=== PATIENT | female | born 2000 | race Caucasian/White ===

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

== ENCOUNTER → 2021-01-21 11:36 | Outpatient (BNVA) | payer MEDICAID, SELFPAY | PROVIDERS: PCP Nurse Practitioner Family; Visit Provider Obstetrics & Gynecology | DX: O99.013 Anemia complicating pregnancy, third trimester (principal); D64.9 Anemia, unspecified; Z3A.00 Weeks of gestation of pregnancy not specified | CPT/HCPCS: 81000 ==

== ENCOUNTER → 2021-01-25 08:56 | Outpatient (BNVA) | payer MEDICAID, SELFPAY | PROVIDERS: PCP Nurse Practitioner Family; Visit Provider Obstetrics & Gynecology | DX: O99.213 Obesity complicating pregnancy, third trimester (principal); O99.333 Smoking (tobacco) complicating pregnancy, third trimester; O99.013 Anemia complicating pregnancy, third trimester; Z3A.32 32 weeks gestation of pregnancy | CPT/HCPCS: 81000; 82951; 82952 ==

== ENCOUNTER → 2021-02-08 10:12 | Outpatient (BNVA) | payer MEDICAID, SELFPAY | PROVIDERS: PCP Nurse Practitioner Family; Visit Provider Nurse Practitioner Women's Health | DX: O09.33 Supervision of pregnancy with insufficient antenatal care, third trimester; O99.212 Obesity complicating pregnancy, second trimester; E66.9 Obesity, unspecified; O99.332 Smoking (tobacco) complicating pregnancy, second trimester; Z3A.00 Weeks of gestation of pregnancy not specified; F17.200 Nicotine dependence, unspecified, uncomplicated | CPT/HCPCS: 81000; 86787 ==

== ENCOUNTER → 2021-02-22 08:50 | Outpatient (BNVA) | payer MEDICAID, SELFPAY | PROVIDERS: PCP Nurse Practitioner Family; Visit Provider Obstetrics & Gynecology | DX: O09.33 Supervision of pregnancy with insufficient antenatal care, third trimester (principal); O99.013 Anemia complicating pregnancy, third trimester; D64.9 Anemia, unspecified; Z3A.00 Weeks of gestation of pregnancy not specified | CPT/HCPCS: 81000; 87081 ==

== ENCOUNTER → 2021-02-28 12:40 | Outpatient (BNVA) | payer MEDICAID, SELFPAY | PROVIDERS: PCP Nurse Practitioner Family; Visit Provider Obstetrics & Gynecology | DX: Z34.02 Encounter for supervision of normal first pregnancy, second trimester (principal) | CPT/HCPCS: 81000 ==

== ENCOUNTER → 2021-03-07 13:06 | Outpatient (BNVA) | payer MEDICAID, SELFPAY | PROVIDERS: PCP Nurse Practitioner Family; Visit Provider Obstetrics & Gynecology | DX: Z34.02 Encounter for supervision of normal first pregnancy, second trimester (principal) | CPT/HCPCS: 81000 ==

== ENCOUNTER 2021-03-11 20:51 | Outpatient (CLI) | payer MEDICAID, SELFPAY ==
[2021-03-11 21:04] VITALS: BMI 37.3
[2021-03-11 21:06] VITALS: BP 122/81; PULSE 101
[2021-03-11 21:10] VITALS: RESP 17; TEMP 36.3
[2021-03-11 21:11] VITALS: TEMP 36.3
[2021-03-11] MEDS: acetaminophen 500 mg Tablet 1000 MG PO (22:00)
[2021-03-11] MEDS: dextrose 5%-lactated ringers 1,000 ML 999 ML IV (22:01)
[2021-03-11 22:34] VITALS: BP 126/72; PULSE 86; TEMP 35.9
[2021-03-11 22:46] VITALS: BP 126/72; PULSE 86; RESP 16; TEMP 35.9
== END 2021-03-11 22:46 | disposition home or self-care (01) ==
LOC: OPOB 20:59 → OBGYN 20:59
PROVIDERS: PCP Nurse Practitioner Family; Visit Provider Obstetrics & Gynecology
DX: O26.899 Other specified pregnancy related conditions, unspecified trimester (principal); Z3A.00 Weeks of gestation of pregnancy not specified; R10.9 Unspecified abdominal pain
CPT/HCPCS: 59025; 96360; 99211

== ENCOUNTER → 2021-03-15 11:25 | Outpatient (BNVA) | payer MEDICAID, SELFPAY | PROVIDERS: PCP Nurse Practitioner Family; Visit Provider Nurse Practitioner Women's Health | DX: Z34.02 Encounter for supervision of normal first pregnancy, second trimester (principal) | CPT/HCPCS: 81000; 85027; 87635 ==

== ENCOUNTER 2021-03-21 18:00 | Inpatient (IN) | payer MEDICAID, SELFPAY ==
[2021-03-21] VITALS (14 sets, daily range): BP systolic 106–140; BP diastolic 56–77; PULSE 75–106; RESP 16–18; TEMP 36.3–36.8; BMI 37.2
[2021-03-21 18:17] LABS: Basophils % 0.4 %; Eosinophils # 0.2 10^3/uL (0.0-0.8); Hematocrit 31.4 % (37.0-47.0); Hemoglobin 9.9 g/dL (11.5-15.3); Lymphocytes # 1.8 10^3/uL (1.5-6.5); Lymphocytes % 17.1 %; Mean Corpuscular HGB Conc 31.5 g/dL (30.0-36.0); Mean Corpuscular Hemoglobin 25.1 pg (28.0-34.0); Mean Corpuscular Volume 79.5 fL (81-99); Mean Platelet Volume 9.8 fL (7.4-10.4); Monocytes # 0.7 10^3/uL (0.2-0.9); Monocytes % 6.5 %; Neutrophils # 7.64 10^3/uL (1.8-8.0); Neutrophils % 73.5 %; Nucleated Red Blood Cells % 0 %; Platelet Count 447 10^3/cmm (130-400); Red Blood Count 3.95 10^6/uL (4.1-5.3); Red Cell Distribution Width 15.3 % (12.1-15.1); White Blood Count 10.4 10^3/uL (4.5-13.0)
[2021-03-21] MEDS: miSOPROStol 100 mcg tablet 25 MCG VAGINAL ×2 (18:26→22:29)
[2021-03-21] MEDS: acetaminophen 325 mg Tablet 650 MG PO (22:32)
[2021-03-21] MEDS: fentaNYL 50 mcg/mL INJ 2mL IVP (22:45)
[2021-03-21] MEDS: hyDROXYzine 25 mg Capsule 50 MG PO (22:46)
[2021-03-22] VITALS (81 sets, daily range): BP systolic 111–165; BP diastolic 57–89; PULSE 68–114; RESP 16–18; TEMP 36.3–37; O2SAT 88–100
[2021-03-22] MEDS: fentaNYL 50 mcg/mL INJ 2mL IVP ×3 (02:30→17:05)
[2021-03-22] MEDS: miSOPROStol 100 mcg tablet 25 MCG VAGINAL (02:52)
--- NOTE | 2021-03-22 09:38 | PM.OPHPUD ---
Labor & Delivery H&P Update Date of Procedure: March 22, 2021 Date H&P Performed: 03/21/21 H&P update information: I have reviewed H&P completed within last 30 days, I have examined patient prior to procedure and No changes to prior documentation Admission Diagnosis:
--- NOTE | 2021-03-22 11:29 | PC.NURSE ---
Consult Visited with this Mom while she is in labor because she had many questions. Encouraged early, direct and [id number]. Provided Understanding book for her to look at (and Dad) while in early labor. Provided contact information.
[2021-03-22] MEDS: oxytocin 30 UNIT/500 ML BAG IV (11:35)
[2021-03-22] MEDS: dextrose 5%-lactated ringers 1,000 ML 125 ML IV ×2 (11:36→22:50)
--- NOTE | 2021-03-22 11:40 | PC.NURSE ---
Patient requested tylenol for back pain. She is rating her pain at a 6, but just wanted tylenol. This nurse will re-evaluate her pain in 30 minutes.
[2021-03-22] MEDS: acetaminophen 325 mg Tablet 650 MG PO (11:41)
[2021-03-22] MEDS: hyDROXYzine 25 mg Capsule 50 MG PO (14:38)
[2021-03-22] MEDS: lactated ringers 1,000 ML 999 ML IV ×2 (16:35→17:38)
[2021-03-22] MEDS: ondansetron 2 mg/ML SDV 2 mL 4 MG IVP (16:36)
--- NOTE | 2021-03-22 17:50 | P.ANESASSM_ITS ---
Pre-Anesthetic Assessment Pre-Anesthetic Assessment: Height/Weight: Height 1.75 m Weight 114.305 kg Temp Pulse Resp BP Pulse Ox 97.3 F L 77 16 129/60 100 03/22/21 05:35 03/22/21 17:46 03/22/21 17:05 03/22/21 17:46 03/22/21 17:35 Preop Diagnosis: IUP Proposed Procedure: epidural Familial anesthetic complications: none Last intake: breakfast at 0800, icechips throughout day Social: Social History: No alcohol and No tobacco Exam: Pre-Anes Outpt Exam: alert, oriented x 3, clear to auscultation bilaterally and regular rate & rhythm Airway: Cervical ROM: WNL MP: 2 Dentition: Full CV/HEM: CV/HEM: Anemia Metabolic: Metabolic: Morbid obesity Anesthetic Plan: ASA status: 2 Anesthesia: Regional (specify below) (epidural) Risk of > 500 ml blood loss (7ml/kg in children): Yes, adequate IV access and fluids planned Meds/Allergies Current Medications: Current Medications Generic Name Dose Route Start Last Admin Trade Name Freq PRN Reason Stop Dose Admin Acetaminophen 650 mg 03/21/21 18:00 03/22/21 11:41 Acetaminophen 32 5 Mg Tablet PO 650 mg Q6H PRN Administration MILD TO MODERATE PAIN Fentanyl 25 - 100 mcg 03/21/21 18:00 03/22/21 17:05 Fentanyl 50 Mcg/ Ml Inj 2ml IVP 50 mcg Q1H PRN Administration SEVERE PAIN Hydroxyzine Pamoat e 50 mg 03/21/21 22:06 03/21/21 22:46 Hydroxyzine 25 M g Capsule PO 50 mg QID PRN Administration sleep, agitation or itching Hydroxyzine Pamoat e 50 mg 03/22/21 11:07 03/22/21 14:38 Hydroxyzine 25 M g Capsule PO 50 mg QID PRN Administration sleep, agitation or itching Oxytocin 30 unit in 500 ml s @ 1 mls/hr 03/22/21 11:15 03/22/21 16:00 Pitocin IV 9 milliunit/min .Q24H JANESSA 9 mls/hr Titration Protocol 1 MILLIUNIT/MIN Dextrose/Lactated Ringer's 1,000 mls @ 125 m ls/hr 03/22/21 11:15 03/22/21 11:36 Dextrose 5%-Lact ated Ringers IV 125 mls/hr .Q8H JANESSA Administration Lactated Ringer's 1,000 mls @ 999 m ls/hr 03/22/21 11:07 03/22/21 16:35 Lactated Ringers IV 999 mls/hr .Q1H1M PRN Administration BLEEDING Ropivacaine 200 mg in 100 mls @ 13 mls/hr 03/22/21 17:15 03/22/21 17:40 Naropin Premix EPIDURAL 13 mls/hr .Q7H42M JANESSA Administration Lactated Ringer's 1,000 mls @ 999 m ls/hr 03/22/21 17:14 03/22/21 17:38 Lactated Ringers IV 999 mls/hr .Q1H1M PRN Administration See label comment s Ondansetron HCl 4 mg 03/21/21 18:00 03/22/21 16:36 Ondansetron 2 Mg /Ml Sdv 2 Ml IVP 4 mg Q4H PRN Administration NAUSEA AND VOMITI NG PFSH Anesthesia PFSH: Medical History Chronic anemia Chronic back pain Migraines NO AURA No pertinent past medical history neghx: htn,dm,thyroid,dvt/pe PCP: Josh Lowry Surgical History No pertinent past surgical history Family History Family/Other Breast cancer Maternal Aunt--dx age unknown Mother Hypertension Sister Hypertension Grandfather Hypertension Maternal Denies family history of Colon cancer Ovarian cancer Diabetes Heart disease Hypercholesteremia Uterine cancer Thyroid disease Stroke Female Reproductive History: Date of last menstrual period: 05/21/20 : 1 Data Anesthesia CBC & Chem 7: 03/21/21 17:50 Other Labs: Laboratory Results - last 48 hr 03/21/21 17:50 WBC 10.4 RBC 3.95 L Hgb 9.9 L Hct 31.4 L MCV 79.5 L MCH 25.1 L MCHC 31.5 RDW 15.3 H Plt Count 447 H MPV 9.8 Neut % (Auto) 73.5 Lymph % (Auto) 17.1 [place] % (Auto) 6.5 Eos % (Auto) 2.0 Baso % (Auto) 0.4 Neut # (Auto) 7.64 Lymph # (Auto) 1.8 [place] # (Auto) 0.7 Eos # (Auto) 0.2 Baso # (Auto) 0.0 Nucleated RBC % (auto) 0 Nucleated RBCs # 0.0 Cardiac Studies: No Data to Display
--- NOTE | 2021-03-22 17:51 | ANES.PROC ---
Anesthesia Procedures Procedure/Date: 03/22/21 Epidural: Time Out Performed: Yes Consents Signed: Procedure Consent, NPO Consent and No Consent Needed Consent: requested by attending/covering physician, from patient, risks and benefits reviewed and patient agrees to proceed Lumbar Level: L3-L4 Epidural position: sitting Epidural procedure: sterile prep of area, 1% lidocaine to numb the area, 18 g needle, negative for paresthesia passed, neg for paresthesia, test dose given, 1.5% xylocaine 1:200k epi ( 5 cc (divided dose)), 0.2% Ropivacaine bolus ml (5), placed PCEA, no systemic response, sterile dressing applied, L.U.D. no apparent complications and 0.2% Ropiavacaine @ mls/hr (13) Additional Comments: ALVA at 5 cm, threaded to 11 cm
[2021-03-23] VITALS (33 sets, daily range): BP systolic 97–177; BP diastolic 52–94; PULSE 73–162; RESP 16–18; TEMP 36.3–37.2; O2SAT 98–100
[2021-03-23] MEDS: miSOPROStol 200 mcg Tablet 800 MCG PR (01:49)
[2021-03-23] MEDS: oxytocin 30 UNIT/500 ML BAG 600 UNIT IV (01:51)
--- NOTE | 2021-03-23 02:07 | PM.DELIVERY ---
Delivery Note: Date of delivery: March 23, 2021 Pre-delivery diagnoses: late care obesity tobacco use anemia in Post-delivery diagnoses: same Procedure: Op report anesthesia: Epidural Delivering Physician: Bam Estimated blood loss (mL): 300 Findings: term female in the LUCIA presentation Pre-Delivery Course: The patient was admitted for induction at term. She was started on pitocin and when she attained 3 cm dilation, she received an epidural for pain management. The pitocin was stopped when she acheived complete cervical dilation. She was allowed to labor down and about three hours later, she began to push. Delivery: The patient had complete cervical dilation and began to push. The head delivered in the LUCIA position over an intact perineum under epidural anesthesia. The nose and mouth were bulb suctioned. The shoulders and body delivered atraumatically. The baby was placed onto the mother's abdomen. The cord was clamped and cut. Cord blood was obtained. The placenta delivered spontaneously. It was inspected and found to be intact. She had a brisk amount of bleeding once the placenta delivered. There was uterine atony. The pitocin was increased to 999 ml/min. 800mcg of cytotec was placed rectally and TXA was started. A vigorous bimanuel exam was performed twice to remove all of the blood and clot. Inspection of the perineum revealed no laceration. Estimated blood loss 300 mL. Apgars on baby were 8 at 1 minute and 9 at 5 minutes. Weight of baby is 7 pounds 7 ounces. Mother and baby were stable post delivery. bleeding had returned to normal. Coding Level of Care Code Acute Wet Milling Wheel Operator for Darline Barlow
[2021-03-23] MEDS: HYDROcodone-acetaminophen 5-325 mg Tablet PO ×3 (02:42→18:25)
--- NOTE | 2021-03-23 04:18 | PC.NURSE ---
pt up to bathroom. void 700mL. educated on deonna care and normal bleeding. instructed to continue to measure urine for now.
[2021-03-23] MEDS: lanolin oint 7 gm 1 APPLIC TOPICAL (09:05)
[2021-03-23] MEDS: benzocaine-menthol 78 gm Canister 1 SPRAY TOPICAL (09:05)
[2021-03-23] MEDS: prenatal vitamin Capsule 1 CAP PO (09:06)
[2021-03-23] MEDS: ibuprofen 800 mg tablet PO ×3 (09:06→21:02)
[2021-03-23] MEDS: docusate sodium 100 mg Capsule PO ×2 (09:06→18:01)
[2021-03-23] MEDS: ferrous sulfate EC 325 mg Tablet PO (09:06)
[2021-03-23 09:29] LABS: Hematocrit 25.7 % (37.0-47.0); Hemoglobin 8.1 g/dL (11.5-15.3); Mean Corpuscular HGB Conc 31.5 g/dL (30.0-36.0); Mean Corpuscular Hemoglobin 25.2 pg (28.0-34.0); Mean Corpuscular Volume 80.1 fL (81-99); Mean Platelet Volume 9.7 fL (7.4-10.4); Platelet Count 362 10^3/cmm (130-400); Red Blood Count 3.21 10^6/uL (4.1-5.3); Red Cell Distribution Width 15.4 % (12.1-15.1); White Blood Count 9.7 10^3/uL (4.5-13.0)
[2021-03-23 10:51] LABS: Basophils % 0.4 %; Eosinophils % 0.3 %; Hematocrit 25.4 % (37.0-47.0); Hemoglobin 8.1 g/dL (11.5-15.3); Lymphocytes # 1.3 10^3/uL (1.5-6.5); Lymphocytes % 13.9 %; Mean Corpuscular HGB Conc 31.9 g/dL (30.0-36.0); Mean Corpuscular Hemoglobin 25.7 pg (28.0-34.0); Mean Corpuscular Volume 80.6 fL (81-99); Mean Platelet Volume 9.8 fL (7.4-10.4); Monocytes # 0.6 10^3/uL (0.2-0.9); Monocytes % 6.3 %; Neutrophils # 7.56 10^3/uL (1.8-8.0); Neutrophils % 78.7 %; Nucleated Red Blood Cells % 0 %; Platelet Count 359 10^3/cmm (130-400); Red Blood Count 3.15 10^6/uL (4.1-5.3); Red Cell Distribution Width 15.7 % (12.1-15.1); White Blood Count 9.6 10^3/uL (4.5-13.0)
--- NOTE | 2021-03-23 12:45 | PC.NURSE ---
note This mom recently completed a feeding with her baby using the nipple shield. She reports baby fed both breasts for 15 min each and it went well (a little hard getting started, by her report).
[2021-03-23] MEDS: acetaminophen 325 mg Tablet 650 MG PO (14:21)
[2021-03-24] MEDS: lanolin oint 7 gm 1 APPLIC TOPICAL (01:40)
[2021-03-24] MEDS: HYDROcodone-acetaminophen 5-325 mg Tablet PO (03:20)
[2021-03-24 04:45] VITALS: BP 116/72; PULSE 75
--- NOTE | 2021-03-24 07:00 | ANE.PACU2 ---
Inpatient post-anesthesia follow up: Airway intact: Yes Vital signs: Temperature 98.0 F Pulse Rate 87 Respiratory Rate 18 Blood Pressure 120/75 Pulse Oximetry 97 Oxygen Delivery Me thod Room Air Oxygen Flow Rate Fraction of Inspir ed Oxygen Hydration adequate: Yes Nausea and vomiting: Yes Pain level: 2
[2021-03-24] MEDS: acetaminophen 325 mg Tablet 650 MG PO (07:51)
[2021-03-24 08:44] VITALS: BP 112/63; PULSE 85
[2021-03-24] MEDS: ferrous sulfate EC 325 mg Tablet PO (09:58)
[2021-03-24] MEDS: prenatal vitamin Capsule 1 CAP PO (09:58)
[2021-03-24] MEDS: docusate sodium 100 mg Capsule PO (09:58)
[2021-03-24] MEDS: ibuprofen 800 mg tablet PO (09:58)
--- NOTE | 2021-03-24 12:47 | PM.DCS ---
Discharge Providers Date of Admission: 03/21/21 18:00 Date of Discharge: March 24, 2021 Attending Provider at Admission: Jayy Leigh MD Attending Provider at Discharge: Jayy Leigh MD Primary Care Provider: Yessy Walls APN Diagnoses at Discharge Discharge Diagnosis (1) state: Status: Acute Reason for Visit Reason for Visit: INDUCTION Hospital Course Hospital Course The patient was admitted for induction at term. She had spontaneous delivery of a term female . She did well and was ready for disharge on day #1 Physical Exam Narrative: EXAM NARRATIVE: The patient is doing well today. No complaints or concerns Const: COMMON NORMALS: no acute distress, patient oriented x3, no limitations, alert and well nourished Resp: COMMON NORMALS: normal respiratory effort EFFORT & INSPECTION: Yes able to speak in complete sentences GI: COMMON NORMALS: Soft to palpation and non-tender PALPATION: Yes Soft to palpation Extremity: COMMON NORMALS: no clubbing, cyanosis or edema and no calf tenderness Neuro: COMMON NORMALS: patient oriented x3 SENSORIUM/ORIENTATION: Yes alert Urinary Catheter Management^: Croft: Cath Placed During This Visit: yes, but has since been removed by the nurse Reason for Continuing Indwelling Catheter: Decision to DC Catheter Urinary Catheter Date of Insertion: 03/22/21 Urinary Catheter Time of Insertion: 17:55 Date Urinary Catheter Removed: 03/23/21 Time Urinary Catheter Discontinued: 00:50 Discharge Data Vitals: Last Vital Signs Temp 97.3 F L 03/23/21 10:21 Pulse 85 03/24/21 08:44 Resp 16 03/23/21 10:21 BP 112/63 03/24/21 08:44 Pulse Ox 98 03/23/21 21:32 Discharge Plan Discharge Patient Disposition: Home Condition: Stable Prescriptions: Continued prenat.vits,sun,[id number] Tablet 1 tab PO DAILY Qty: 90 RF: 1 ferrous sulfate 325 mg (65 mg iron) tablet 325 mg PO DAILY RF: 0 Discharge Orders: Discharge Order (Routine); Ordered 03/24/21 Ordered By: Zulma Kuhn Patient Instructions: Opioid Safety Discharge Attestations Time Spent in Discharge Care*: less than 30 min Quality Metrics Clinical Quality Measures During this hospital stay, did patient experience: None Coding Level of Care Code Acute Chg FW DC note Diagnoses state Z39.2
[2021-03-24 14:32] VITALS: BP 120/75; PULSE 87
[2021-03-24 14:33] VITALS: RESP 18; TEMP 36.7; O2SAT 97
== END 2021-03-24 14:45 | disposition home or self-care (01) | DRG 807 ==
LOC: OPOB 21:21 → OBGYN 21:21
PROVIDERS: Obstetrics & Gynecology; Admitting Provider Obstetrics & Gynecology; PCP Nurse Practitioner Family; Visit Provider Obstetrics & Gynecology
DX: O99.02 Anemia complicating childbirth (principal); Z37.0 Single live birth; D64.9 Anemia, unspecified; O99.214 Obesity complicating childbirth; E66.01 Morbid (severe) obesity due to excess calories; O99.334 Smoking (tobacco) complicating childbirth; F17.200 Nicotine dependence, unspecified, uncomplicated; Z3A.40 40 weeks gestation of pregnancy
CPT/HCPCS: 36415; 51702; 59025; 59409; 81000; 85025; 85027; 96374; 96375; 98960; 99211; J2405; J2795; J3010

== ENCOUNTER → 2021-09-16 13:21 | Outpatient (BNVA) | payer MEDICAID, SELFPAY | PROVIDERS: PCP Nurse Practitioner Family; Visit Provider Nurse Practitioner Family | DX: R53.83 Other fatigue (principal) | CPT/HCPCS: 80053; 81025; 82306; 82607; 84439; 84443; 85025 ==

== ENCOUNTER → 2021-10-04 10:38 | Outpatient (BNVA) | payer MEDICAID, SELFPAY | PROVIDERS: PCP Nurse Practitioner Family; Visit Provider Nurse Practitioner Family | DX: F41.9 Anxiety disorder, unspecified (principal); F32.A Depression, unspecified; A08.4 Viral intestinal infection, unspecified; G43.709 Chronic migraine without aura, not intractable, without status migrainosus; D50.9 Iron deficiency anemia, unspecified; E55.9 Vitamin D deficiency, unspecified | CPT/HCPCS: 80053; 83735; 85025 ==

== ENCOUNTER → 2021-12-22 13:34 | Outpatient (BNVA) | payer MEDICAID, SELFPAY | PROVIDERS: PCP Nurse Practitioner Family; Visit Provider Nurse Practitioner Family | DX: N89.8 Other specified noninflammatory disorders of vagina (principal); R30.0 Dysuria; N39.0 Urinary tract infection, site not specified; N73.9 Female pelvic inflammatory disease, unspecified; B37.9 Candidiasis, unspecified | CPT/HCPCS: 87491; 87591; 87661 ==

== ENCOUNTER → 2022-01-10 09:01 | Outpatient (BNVA) | payer MEDICAID, SELFPAY | PROVIDERS: PCP Nurse Practitioner Family; Visit Provider Nurse Practitioner Family | DX: N91.1 Secondary amenorrhea (principal); N91.2 Amenorrhea, unspecified; N39.0 Urinary tract infection, site not specified; D50.9 Iron deficiency anemia, unspecified | CPT/HCPCS: 84702 ==

== ENCOUNTER → 2022-04-25 11:04 | Outpatient (BNVA) | payer MEDICAID, SELFPAY | PROVIDERS: PCP Family Medicine; Visit Provider Nurse Practitioner Family | DX: N91.1 Secondary amenorrhea (principal); D64.9 Anemia, unspecified; D50.9 Iron deficiency anemia, unspecified; N39.0 Urinary tract infection, site not specified; Z34.90 Encounter for supervision of normal pregnancy, unspecified, unspecified trimester; R53.83 Other fatigue; Z78.9 Other specified health status; E55.9 Vitamin D deficiency, unspecified | CPT/HCPCS: 80053 ==

== ENCOUNTER → 2022-04-27 08:58 | Outpatient (BNVA) | payer MEDICAID, SELFPAY | PROVIDERS: PCP Family Medicine; Visit Provider Nurse Practitioner Family | DX: N91.1 Secondary amenorrhea (principal); D64.9 Anemia, unspecified; D50.9 Iron deficiency anemia, unspecified; N39.0 Urinary tract infection, site not specified; R53.83 Other fatigue; Z78.9 Other specified health status; E55.9 Vitamin D deficiency, unspecified | CPT/HCPCS: 84702 ==

== ENCOUNTER 2022-06-20 19:41 | Outpatient (CLI) | payer MEDICAID, SELFPAY ==
[2022-06-20 19:49] VITALS: BMI 34.0
[2022-06-20 19:58] VITALS: BP 126/76; PULSE 77
[2022-06-20 20:00] VITALS: RESP 16; TEMP 36.6
[2022-06-20 20:13] VITALS: BP 120/63; PULSE 71
[2022-06-20 20:28] VITALS: BP 117/60; PULSE 72
[2022-06-20 20:31] LABS: Glucose Urine UA Norm (Normal); Ketones Urine Negative (Negative); Protein Urine Neg (Negative); Urine Appearance Clear (CLEAR); Urine Color Yellow (Yellow); pH Urine 6 (5-7)
[2022-06-20 20:32] LABS: Add Urine Culture? No; Bacteria Urine 1+ /hpf; Bilirubin Urine Neg (Negative); Blood Urine Neg (Negative); Leukocyte Esterase Urine Trace (Negative); Nitrate Urine Negative (Negative); Urobilinogen Urine Norm (Negative)
[2022-06-20 20:38] VITALS: BP 118/68; PULSE 75
[2022-06-20 20:46] VITALS: BP 118/68; PULSE 75; RESP 16
== END 2022-06-20 20:46 | disposition home or self-care (01) ==
LOC: OPOB 19:43 → OBGYN 20:34
PROVIDERS: PCP Family Medicine; Visit Provider Obstetrics & Gynecology
DX: O26.899 Other specified pregnancy related conditions, unspecified trimester (principal); Z3A.00 Weeks of gestation of pregnancy not specified
CPT/HCPCS: 59025; 81001

== ENCOUNTER 2022-09-05 11:15 | Outpatient (CLI) | payer MEDICAID, SELFPAY ==
[2022-09-05 11:28] VITALS: BP 123/72; PULSE 91
[2022-09-05 11:43] VITALS: BP 126/70; PULSE 86
[2022-09-05 11:44] VITALS: RESP 15; BMI 34.4
[2022-09-05 11:58] VITALS: BP 113/66; PULSE 80
[2022-09-05 12:13] VITALS: BP 112/68; PULSE 76
[2022-09-05 12:29] VITALS: BP 112/68; PULSE 76; RESP 18
[2022-09-05 12:49] LABS: Blood Urine 3+ (Negative); Glucose Urine UA Norm (Normal); Ketones Urine Negative (Negative); Protein Urine Neg (Negative); Specific Gravity, Urine 1.005 (1.005-1.030); Urine Appearance Hazy (CLEAR); Urine Color Yellow (Yellow); pH Urine 7 (5-7)
[2022-09-05 12:50] LABS: Add Urine Culture? No; Bacteria Urine 1+ /hpf; Bilirubin Urine Neg (Negative); Leukocyte Esterase Urine Trace (Negative); Nitrate Urine Negative (Negative); RBC Urine 50-80 /hpf (0-2); Urobilinogen Urine Norm (Negative); WBC Urine 0-4 /hpf (0-5)
--- NOTE | 2022-09-05 13:26 | PC.NURSE ---
DAD CALLED BACK AT 1325 AND I TOLD HIM THAT HIS WIFES APPOINTMENT IS THIS SUNDAY AT 1300. VOICES UNDERSTANDING.
== END 2022-09-05 12:30 | disposition home or self-care (01) ==
LOC: OPOB 11:15 → OBGYN 11:16
PROVIDERS: PCP Family Medicine; Visit Provider Family Medicine
DX: O26.899 Other specified pregnancy related conditions, unspecified trimester (principal); Z3A.00 Weeks of gestation of pregnancy not specified; R10.9 Unspecified abdominal pain
CPT/HCPCS: 59025; 81001; 99211

== ENCOUNTER 2022-09-24 21:12 | Outpatient (CLI) | payer MEDICAID, SELFPAY ==
[2022-09-24 21:11] VITALS: BMI 36.6
[2022-09-24 21:21] VITALS: BP 130/80; PULSE 83
[2022-09-24 21:41] VITALS: BP 106/61; PULSE 77
[2022-09-24 21:46] VITALS: BP 106/61; PULSE 77; RESP 16; TEMP 36.6
== END 2022-09-24 21:46 | disposition home or self-care (01) ==
LOC: OPOB 21:13 → OBGYN 21:14
PROVIDERS: PCP Family Medicine; Visit Provider Family Medicine
DX: O26.899 Other specified pregnancy related conditions, unspecified trimester (principal); Z3A.00 Weeks of gestation of pregnancy not specified; M25.559 Pain in unspecified hip
CPT/HCPCS: 59025; 99211

== ENCOUNTER 2022-10-22 12:15 | Outpatient (CLI) | payer MEDICAID, SELFPAY ==
[2022-10-22 12:26] VITALS: BP 131/87; PULSE 102
[2022-10-22 12:40] VITALS: BP 113/72; PULSE 84
[2022-10-22 12:43] VITALS: RESP 16; TEMP 36.9; BMI 36.8
[2022-10-22 12:55] VITALS: BP 118/74; PULSE 75
== END 2022-10-22 13:10 | disposition home or self-care (01) ==
LOC: OPOB 12:18 → OBGYN 12:19
PROVIDERS: PCP Family Medicine; Visit Provider Family Medicine
DX: O47.9 False labor, unspecified (principal); Z3A.00 Weeks of gestation of pregnancy not specified
CPT/HCPCS: 59025; 99211

== ENCOUNTER 2022-10-23 00:30 | Inpatient (IN) | payer MEDICAID, SELFPAY ==
[2022-10-22] VITALS (8 sets, daily range): BP systolic 109–130; BP diastolic 55–73; PULSE 73–100; RESP 16; TEMP 36.9; BMI 34.9
[2022-10-22 22:21] LABS: Basophils % 0.4 %; Eosinophils # 0.2 10^3/uL (0.0-0.8); Eosinophils % 2.6 %; Hematocrit 30.8 % (37.0-47.0); Hemoglobin 9.5 g/dL (11.5-15.3); Lymphocytes % 26.5 %; Mean Corpuscular HGB Conc 30.8 g/dL (30.0-36.0); Mean Corpuscular Hemoglobin 23.8 pg (28.0-34.0); Mean Corpuscular Volume 77.2 fl (81-99); Monocytes # 0.4 10^3/uL (0.2-0.9); Monocytes % 5.6 %; Neutrophils # 4.95 10^3/uL (1.8-7.7); Neutrophils % 64.6 %; Nucleated Red Blood Cells % 0 %; Platelet Count 468 10^3/cmm (130-400); Red Blood Count 3.99 10^6/uL (4.1-5.3); Red Cell Distribution Width 16.2 % (12.1-15.1); White Blood Count 7.7 10^3/uL (4.0-10.0)
[2022-10-22] MEDS: dextrose 5%-lactated ringers 1,000 ML 125 ML IV (22:27)
[2022-10-23] VITALS (110 sets, daily range): BP systolic 93–152; BP diastolic 51–95; PULSE 55–176; RESP 15–17; TEMP 36.8–37.4; O2SAT 90–100
[2022-10-23] MEDS: oxytocin 30 UNIT/500 ML BAG IV (00:26)
--- NOTE | 2022-10-23 07:34 | P.HP_ITS ---
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 course complicated by maternal anemia. 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 Presented earlier this afternoon and found to be 1/45/-3 with contractions approx every 10 minutes. Sent home and returns for induction- no significant increase in her contractions since presenting earlier. Denies LOF, vaginal bleeding. Good movement. care was good and starting in first trimester. No significant PMHx. One episode vaginal bleeding in early - resolved and no further bleeding. Normal anatomy US. Labs Blood type OB HPI: O (+) positive Rubella: Immune RPR: Negative GBS: Negative HBsAG: Negative Other Lab Information: HIV neg Hep C ab neg UCx wnl GC/Chlam neg Initial H/H 10.2/31.6 1hr GTT 132 passed 3rd trimester H/H 10./31.2 Review of Systems Const: Denies: fever(s) or chills Card: Denies: chest pain or palpitations Resp: Denies: dyspnea Musc: Reports: back pain; Denies: extremity pain Medications/Allergies Home Medications Medication Instructions Recorded Confirmed Last Taken Type vits 75-iron 28 mg-folic See Rx Instructions PO .COMPLEX 90 04/25/22 10/23/22 10/22/22 Rx acid 800 mcg-omega-3 oral combo days #90 ea pack (One A Day Women's DHA) Allergies Allergy/AdvReac Type Severity Reaction Status Date / Time No Known Allergies Allergy Verified 10/23/22 00:36 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: Medical History Chronic anemia Chronic back pain Migraines NO AURA No pertinent past medical history neghx: htn,dm,thyroid,dvt/pe PCP: Josh Lowry Surgical History No pertinent past surgical history Family History Family/Other Breast cancer Maternal Aunt--dx age unknown Mother Hypertension Sister Hypertension Grandfather Hypertension Maternal Denies family history of Colon cancer Ovarian cancer Diabetes Heart disease Hypercholesteremia Uterine cancer Thyroid disease Stroke Social History Smoking and tobacco status: never smoked Alcohol intake: never Marital status: Life Partner Number of children: 1 service: No Current occupational status: unemployed Current gender identity: Female Special brendon needs: No Agree to transfusion: Yes Other Female Reproductive History: Hx Age of Menarche: 14 Personal Safety: Do you feel safe at home: Yes Victim of physical abuse: No Victim of emotional abuse: No Victim of sexual abuse: No History History History 2 Term 1 0 Miscarriages/Ectopic 0 Living Children 1 Vitals/I&O/Wt Last Vital Signs Temp 98.5 F 10/22/22 12:43 Pulse 83 10/22/22 22:07 Resp 16 10/22/22 12:43 BP 114/67 10/22/22 22:07 Physical Exam Const: COMMON NORMALS: no acute distress, healthy appearing and alert Resp: COMMON NORMALS: normal respiratory effort, No use of accessory muscles and clear to auscultation bilaterally Cardio: COMMON NORMALS: regular rate and regular rhythm : OTHER: 4/50/-3, posterior, soft Extremity: NARRATIVE EXTREMITY EXAM: trace LE pitting edema Psych: COMMON NORMALS: mental status grossly normal, normal affect and speech normal Data 10/22/22 21:40 A&P Assessment and plan (1) Term : 22yo at 40w1d presenting for elective IOL. On presentation progressed from 2/10/-3 to 3/50/-3- started on low dose pitocin. She has progressed overnight to 4/50/-3. FHT Category 1. Admission CBC. Fentanyl protocol. Continuous EFM. May have epidural when desired. Discussed induction, risks and benefits in office with patient previously and she agrees to proceed. (2) Anemia during : On iron supplementation prenatally Attestations Medical Necessity Statement*: Sofia Peña's hospital stay will require gr eater than 2 midnights for routine labor and delivery and care. Coding Level of Care Code Acute Code for Chg Fwd Diagnoses Term Z34.90 Anemia during O99.019
[2022-10-23] MEDS: ondansetron 2 mg/ML SDV 2 mL 4 MG IVP ×2 (07:48→15:10)
[2022-10-23] MEDS: lactated ringers 1,000 ML 999 ML IV ×2 (07:48→08:47)
[2022-10-23] MEDS: fentaNYL 50 mcg/mL INJ 2mL IVP (07:49)
--- NOTE | 2022-10-23 10:26 | ANES.PREANE2 ---
Pre-Anesthetic Assessment Height/Weight: Height 1.75 m Weight 107.501 kg Temp Pulse Resp BP Pulse Ox O2 Del Method 98.5 F 85 17 112/55 99 10/22/22 12:43 10/23/22 10:24 10/23/22 07:49 10/23/22 10:24 10/23/22 10:22 10/23/22 06:44 Preop Diagnosis: IUP Epidural Familial anesthetic complications: none Was Beta Talia taken within 24 hours: N/A Was Clonidine taken within 24 hours: N/A Social No alcohol and No tobacco Exam alert, oriented x 3, clear to auscultation bilaterally and regular rate & rhythm Airway Mallampati: Class III Dentition: chipped CV/HEM Anemia Metabolic Morbid Obesity Anesthetic Plan ASA status: 2 Anesthesia: Regional (specify below) Other: epidural Risk of > 500 ml blood loss (7ml/kg in children): Yes, adequate IV access and fluids planned Medications/Allergies Home Medications Medication Instructions Recorded Confirmed Last Taken Type vits 75-iron 28 mg-folic See Rx Instructions PO .COMPLEX 90 04/25/22 10/23/22 10/22/22 Rx acid 800 mcg-omega-3 oral combo days #90 ea pack (One A Day Women's DHA) Allergies Allergy/AdvReac Type Severity Reaction Status Date / Time No Known Allergies Allergy Verified 10/23/22 00:36 Current Medications Generic Name Dose Route Start Last Admin Trade Name Freq PRN Reason Stop Dose Admin Fentanyl 25 - 100 mcg 10/23/22 07:35 10/23/22 07:49 Fentanyl 50 Mcg/Ml Inj 2ml IVP 25 mcg Q1H PRN Administration SEVERE PAIN Dextrose/Lactated Ringer's 1,000 mls @ 125 mls/hr 10/22/22 22:07 10/22/22 22:27 Dextrose 5%-Lactated Ringers IV 125 mls/hr .Q8H PRN Administration per label comments Oxytocin 30 unit in 500 mls @ 1 mls/hr 10/23/22 00:15 10/23/22 03:30 Pitocin IV 5 milliunit/min .Q24H JANESSA 5 mls/hr Titration Protocol 1 MILLIUNIT/MIN Lactated Ringer's 1,000 mls @ 999 mls/hr 10/23/22 07:32 10/23/22 08:47 Lactated Ringers IV 999 mls/hr .Q1H1M PRN Administration See label comments Ondansetron HCl 4 mg 10/22/22 22:07 10/23/22 07:48 Ondansetron 2 Mg/Ml Sdv 2 Ml IVP 4 mg Q4H PRN Administration NAUSEA AND VOMITING PFSH Anesthesia Medical History Chronic anemia Chronic back pain Migraines NO AURA No pertinent past medical history neghx: htn,dm,thyroid,dvt/pe PCP: Josh Lowry Surgical History No pertinent past surgical history Family History Family/Other Breast cancer Maternal Aunt--dx age unknown Mother Hypertension Sister Hypertension Grandfather Hypertension Maternal Denies family history of Colon cancer Ovarian cancer Diabetes Heart disease Hypercholesteremia Uterine cancer Thyroid disease Stroke Social History Smoking and tobacco status: never smoked Alcohol intake: never Marital status: Life Partner Number of children: 1 service: No Current occupational status: unemployed Current gender identity: Female Special brendon needs: No Agree to transfusion: Yes Female Reproductive History : 2 Data Anesthesia 10/22/22 21:40 Short CBC 10/22/22 Range/Units 21:40 WBC 7.7 (4.0-10.0) 10^3/uL Hgb 9.5 L (11.5-15.3) g/dL Hct 30.8 L (37.0-47.0) % MCV 77.2 L (81-99) fl Plt Count 468 H (130-400) 10^3/cmm Neut % (Auto) 64.6 % Neut # (Auto) 4.95 (1.8-7.7) 10^3/uL Cardiac Studies: No Data to Display
--- NOTE | 2022-10-23 10:27 | ANES.PROC ---
Anesthesia Procedures Procedure/Date: 10/23/22 Epidural: Time Out Performed: Yes Consents Signed: Procedure Consent Consent: requested by attending/covering physician, from patient, from other, risks and benefits reviewed and patient agrees to proceed Lumbar Level: L3-L4 Epidural position: sitting Epidural procedure: sterile prep of area, 1% lidocaine to numb the area, 18 g needle, negative for paresthesia passed, neg for paresthesia, test dose given, 1.5% xylocaine 1:200k epi (5 cc), 0.2% Ropivacaine bolus ml (5 cc), placed PCEA, no systemic response, sterile dressing applied, L.U.D. no apparent complications and 0.2% Ropiavacaine @ mls/hr (13) Additional Comments: ALVA at4.5 cm, threaded to 11 cm
[2022-10-23] MEDS: acetaminophen 325 mg Tablet 650 MG PO ×2 (10:50→22:22)
[2022-10-23] MEDS: dextrose 5%-lactated ringers 1,000 ML 125 ML IV (15:06)
--- NOTE | 2022-10-23 15:19 | PC.NURSE ---
this nurse at 1230 10/23/2022 titrated the oxytocin 30 unit in 500mL from 9miliunit/min, to 10 miliunit/min. 1330 this nurse titrated the oxytocin 30 unit in 500mL from 10 miliunit/min, to 11 miliunit/min. 1400 titrated the oxytocin 30 unit in 500mL from 11 miliunit/min, to 12 miliunit/min. 1430 titrated the oxytocin 30 unit in 500mL from 12 miliunit/min, to 13 miliunit/min.
--- NOTE | 2022-10-23 17:29 | PM.DELIVERY ---
Delivery Note: Date of delivery: October 23, 2022 Pre-delivery diagnoses: Term Anemia Post-delivery diagnoses: Term delivery of viable male Anemia Procedure: Spontaneous vaginal delivery Delivering Physician: Charlotte Lockhart DO Estimated blood loss (mL): 250 Pre-Delivery Course: Admitted for elective induction on 10/22/22 at 40w1d. Started on low dose pitocin and progressed to 4/50/-3. AROM performed with clear fluid at 12:41 on 10/23/22. Continued on pitocin and progressed to complete approx 4.5 hours after AROM. FHT Category 1 throughout labor. Delivery: Patient progressed to complete. Patient placed in lithotomy position. Patient pushed with adequate effort. Head delivered in LUCIA position, loose nuchal cord was present and easily reduced. Shoulders and rest of body delivered without difficulty with adequate epidural anesthesia. Mouth and nares bulb suctioned. Infant placed on maternal abdomen. Cord clamped and cut after 1 minute delay. Placenta spontaneously delivered and intact. Routine pitocin started. Fundus was noted to be to be boggy however quickly became firm with fundal massage. The vagina and cervix were inspected and no lacerations were noted. Small right periurethral abrasion noted and hemostatic. Small gush of blood noted following and lower uterine segment subsequently swept free of clots. Fundus was again noted to be firm with improvement in bleeding. Term male born at 40w2d at 1701 with 8/9 weighing 8lb 13oz and measuring 20.5 in length Placenta noted to be intact with centrally inserted umbilical cord and 3 vessel cord. Complications: Maternal none Infant none History History History 2 Term 2 0 Miscarriages/Ectopic 0 Living Children 2 Coding Level of Care Code Acute Code for Chg Fwd
[2022-10-23] MEDS: ibuprofen 800 mg tablet PO (20:02)
[2022-10-23] MEDS: docusate sodium 100 mg Capsule PO (20:02)
[2022-10-23] MEDS: lanolin oint 7 gm 1 APPLIC TOPICAL (20:02)
[2022-10-23] MEDS: benzocaine-menthol 78 gm Canister 1 SPRAY TOPICAL (20:02)
[2022-10-24 02:13] VITALS: BP 127/84; PULSE 65; RESP 18; TEMP 36.6; O2SAT 98
[2022-10-24 05:21] VITALS: BP 108/68; PULSE 66; RESP 18; TEMP 36.6; O2SAT 98
[2022-10-24 06:16] LABS: Hematocrit 29.2 % (37.0-47.0); Hemoglobin 8.7 g/dL (11.5-15.3); Mean Corpuscular HGB Conc 29.8 g/dL (30.0-36.0); Mean Corpuscular Volume 80.4 fl (81-99); Mean Platelet Volume 9.7 fL (7.4-10.4); Platelet Count 357 10^3/cmm (130-400); Red Blood Count 3.63 10^6/uL (4.1-5.3); Red Cell Distribution Width 15.9 % (12.1-15.1); White Blood Count 7.2 10^3/uL (4.0-10.0)
--- NOTE | 2022-10-24 08:17 | P.PN_ITS ---
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 Tolerating normal diet. Ambulating without issue or pain. Having some right sided hip pain with some movements. No vaginal or fundal pain. She is urinating normally, has not had a bowel movement but passing gas. Reports bleeding is normal- less than the amount of a period. Did pass some clots overnight, but none since. Discussed contraception and she is considering OCPs or depo shot. Labor: Station: +2 Amniotic Membrane Status: Ruptured Monitor Mode: External Contraction Pattern: Irregular Status: Category II Vitals/I&O/Wt Last Vital Signs Temp 97.9 F 10/24/22 05:21 Pulse 66 10/24/22 05:21 Resp 18 10/24/22 05:21 BP 108/68 10/24/22 05:21 Pulse Ox 98 10/24/22 05:21 O2 Del Method 10/24/22 05:21 10/23/22 10/24/22 10/24/22 22:59 06:59 14:59 Intake Total 550 / 2532.35 Output Total 1000 / 1000 Balance -450 / 1532.35 Weight last 48 hrs Weight 237 lb Weight 237 lb Physical Exam Const: COMMON NORMALS: no acute distress, healthy appearing and alert Resp: COMMON NORMALS: normal respiratory effort, No use of accessory muscles and clear to auscultation bilaterally AUSCULTATION: clear to auscultation bilaterally Cardio: COMMON NORMALS: regular rate and regular rhythm RATE: regular rate RHYTHM: regular rhythm : OTHER: Uterine fundus is firm and below the umbilicus. Extremity: NARRATIVE EXTREMITY EXAM: No LE edema or calf tenderness biltaerally. Neuro: SENSORIUM/ORIENTATION: Yes alert Psych: COMMON NORMALS: mental status grossly normal, normal affect and speech normal SPEECH: Yes normal speech Urinary Catheter Management: Croft: Cath Placed During This Visit: yes, but has since been removed by the nurse Reason for Continuing Indwelling Catheter: Not indwelling catheter Urinary Catheter Date of Insertion: 10/23/22 Urinary Catheter Time of Insertion: 10:45 Date Urinary Catheter Removed: 10/23/22 Time Urinary Catheter Discontinued: 16:50 Data 10/24/22 05:30 A&P Assessment and plan (1) Spontaneous vaginal delivery: PPD#1 s/p without complication. Doing well. Encourage ambulation, normal diet. Monitor bleeding. Hgb from 9.5 on admission to 8.7 . Continue scheduled ibuprofen with PRN tylenol. (2) Anemia during : As above and on daily iron supplementation as well. Plan to continue outpatient. Attestations Medical Necessity Statement*: Sofia Rosario Kjmayuri's hospital stay will require greater than 2 midnights for routine labor and delivery and care. Coding Level of Care Code Acute Code for Chg Fwd Diagnoses Spontaneous vaginal delivery O80 Anemia during O99.019
[2022-10-24 09:45] VITALS: BP 124/63; PULSE 67; RESP 17
[2022-10-24] MEDS: ferrous sulfate EC 325 mg Tablet PO (10:07)
[2022-10-24] MEDS: docusate sodium 100 mg Capsule PO (10:07)
[2022-10-24] MEDS: ibuprofen 800 mg tablet PO ×2 (10:07→16:06)
[2022-10-24] MEDS: prenatal vitamin Capsule 1 CAP PO (10:07)
[2022-10-24 16:34] VITALS: BP 118/67; PULSE 70; RESP 17
[2022-10-24 20:08] VITALS: BP 124/86; PULSE 67; RESP 18; TEMP 36.7; O2SAT 99
[2022-10-24 20:09] VITALS: BP 124/86; PULSE 67; RESP 18; TEMP 36.7; O2SAT 99
--- NOTE | 2022-10-24 21:40 | PM.OBGYDC ---
Discharge Providers SOLAR MANUFACTURER'S REPRESENTATIVE Date of Admission: 10/23/22 00:30 Date of Discharge: 10/24/22 Attending Provider at Admission: Charlotte Lockhart DO Attending Provider at Discharge: Charlotte Lockhart DO Primary SOLAR MANUFACTURER'S REPRESENTATIVE: Charlotte Lockhart DO Primary Care Provider: Malia Laguerre MD Diagnoses at Discharge Discharge Diagnosis (1) Spontaneous vaginal delivery: Status: Acute (2) Anemia during : Status: Acute Reason for Visit Reason for Visit: IOL Hospital Course Hospital Course Pre-Delivery Course:?? Admitted for elective induction on 10/22/22 at 40w1d. Started on low dose pitocin and progressed to 4/50/-3. AROM performed with clear fluid at 12:41 on 10/23/22. Continued on pitocin and progressed to complete approx 4.5 hours after AROM. FHT Category 1 throughout labor. Delivery:?? Patient progressed to complete. Patient placed in lithotomy position. Patient pushed with adequate effort. Head delivered in LUCIA position, loose nuchal cord was present and easily reduced. Shoulders and rest of body delivered without difficulty with adequate epidural anesthesia. Mouth and nares bulb suctioned. Infant placed on maternal abdomen. Cord clamped and cut after 1 minute delay.? Placenta spontaneously delivered and intact. Routine pitocin started. Fundus was noted to be to be boggy however quickly became firm with fundal massage. The vagina and cervix were inspected and no lacerations were noted. Small right periurethral abrasion noted and hemostatic. Small gush of blood noted following and lower uterine segment subsequently swept free of clots. Fundus was again noted to be firm with improvement in bleeding. Term male born at 40w2d at 1701 with 8/9 weighing 8lb 13oz and measuring 20.5 in length Placenta noted to be intact with centrally inserted umbilical cord and 3 vessel cord. Complications: Maternal none ? Infant none EBL 250 mL Course: Patient underwent on 10/23/22. Following delivery patient ambulated well, tolerated a normal diet without nausea or vomiting. Pain was well controlled on PO medications, well, no leg/calf pain, no calf/leg swelling, normal urination, passing gas and normal bowel movements. Vaginal bleeding thin lochia and decreasing. labs significant for hemoglobin 8.7 decreased from 9.5 on admission. control was discussed and patient is considering OCPs or depo shot. Follow-up planned for 2 and 6 weeks . Warning signs for endometritis, pre-eclampsia, DVT/PE, mastitis were reviewed, discussed additional warning signs requiring patient to seek medical attention including increased vaginal bleeding, worsening abdominal pain. Pelvic rest and activity precautions reviewed as well. She is discharged on 10/24/22 in stable condition. Information Peripartum Data: Infant Delivery Method: Vaginal Physical Exam Const: COMMON NORMALS: no acute distress, healthy appearing and alert Resp: COMMON NORMALS: normal respiratory effort, No use of accessory muscles and clear to auscultation bilaterally AUSCULTATION: clear to auscultation bilaterally Cardio: COMMON NORMALS: regular rate and regular rhythm RATE: regular rate RHYTHM: regular rhythm : OTHER: Uterine fundus is firm and below the umbilicus. Extremity: NARRATIVE EXTREMITY EXAM: No LE edema or calf tenderness biltaerally. Neuro: SENSORIUM/ORIENTATION: Yes alert Psych: COMMON NORMALS: mental status grossly normal, normal affect and speech normal SPEECH: Yes normal speech Urinary Catheter Management: Croft: Cath Placed During This Visit: yes, but has since been removed by the nurse Reason for Continuing Indwelling Catheter: Not indwelling catheter Urinary Catheter Date of Insertion: 10/23/22 Urinary Catheter Time of Insertion: 10:45 Date Urinary Catheter Removed: 10/23/22 Time Urinary Catheter Discontinued: 16:50 History History History 2 Term 2 0 Miscarriages/Ectopic 0 Living Children 2 Discharge Data Studies Completed and Pending Laboratory Results WBC 7.2 10^3/uL (4.0-10.0) 10/24/22 05:30 RBC 3.63 10^6/uL (4.1-5.3) L 10/24/22 05:30 Hgb 8.7 g/dL (11.5-15.3) L 10/24/22 05:30 Hct 29.2 % (37.0-47.0) L 10/24/22 05:30 MCV 80.4 fl (81-99) L 10/24/22 05:30 MCH 24.0 pg (28.0-34.0) L 10/24/22 05:30 MCHC 29.8 g/dL (30.0-36.0) L 10/24/22 05:30 RDW 15.9 % (12.1-15.1) H 10/24/22 05:30 Plt Count 357 10^3/cmm (130-400) 10/24/22 05:30 MPV 9.7 fL (7.4-10.4) 10/24/22 05:30 Neut % (Auto) 64.6 % 10/22/22 21:40 Lymph % (Auto) 26.5 % 10/22/22 21:40 Dane % (Auto) 5.6 % 10/22/22 21:40 Eos % (Auto) 2.6 % 10/22/22 21:40 Baso % (Auto) 0.4 % 10/22/22 21:40 Neut # (Auto) 4.95 10^3/uL (1.8-7.7) 10/22/22 21:40 Lymph # (Auto) 2.0 10^3/uL (0.8-4.8) 10/22/22 21:40 Dane # (Auto) 0.4 10^3/uL (0.2-0.9) 10/22/22 21:40 Eos # (Auto) 0.2 10^3/uL (0.0-0.8) 10/22/22 21:40 Baso # (Auto) 0.0 10^3/uL (0.0-0.1) 10/22/22 21:40 Nucleated RBC % (auto) 0 % 10/22/22 21:40 Nucleated RBCs # 0.0 /100WBC 10/22/22 21:40 Vitals Last Vital Signs Temp 98.1 F 10/24/22 20:09 Pulse 67 10/24/22 20:09 Resp 18 10/24/22 20:09 BP 124/86 10/24/22 20:09 Pulse Ox 99 10/24/22 20:09 O2 Del Method 10/24/22 20:08 Discharge Plan Discharge Patient Disposition: Home Condition: Stable Prescriptions: New ibuprofen 800 mg Tablet 800 mg PO TID Qty: 90 0RF docusate sodium 100 mg Capsule 100 mg PO BID Qty: 60 0RF ferrous sulfate 325 mg (65 mg iron) Tablet,Delayed Release (Dr/Ec) 325 mg PO DAILY Qty: 90 0RF Continued One A Day Women's DHA 28 mg iron- 800 mcg combo pack See Rx Instructions PO .COMPLEX 90 Days Qty: 90 3RF Rx Instructions: 1 tab PO; Discharge Orders: Discharge Order (Routine); Ordered 10/24/22 Ordered By: Charlotte Lockhart Discharge Diet: Regular Discharge Activity: Increase activity as tolerated Patient Instructions: Bleeding (DC), Preeclampsia and Eclampsia After Delivery (GEN), Vaginal Delivery (DC), Opioid Safety, Depression Activity Restrictions/Additional Instructions: Pelvic rest for 6 weeks. Follow-up with Dr. Lockhart at 2 and 6 weeks . Discharge Attestations SOLAR MANUFACTURER'S REPRESENTATIVE Time Spent in Discharge Care*: greater than 30 min Coding Level of Care Code Acute Code for Chg Fwd Diagnoses Spontaneous vaginal delivery O80 Anemia during O99.019
== END 2022-10-24 20:45 | disposition home or self-care (01) | DRG 807 ==
LOC: OPOB 00:32 → OBGYN 00:32
PROVIDERS: Admitting Provider Family Medicine; PCP Family Medicine; Visit Provider Family Medicine
DX: O99.02 Anemia complicating childbirth (principal); Z37.0 Single live birth; O48.0 Post-term pregnancy; O69.81X0 Labor and delivery complicated by cord around neck, without compression, not applicable or unspecified; D64.9 Anemia, unspecified; Z3A.40 40 weeks gestation of pregnancy
CPT/HCPCS: 36415; 51702; 59409; 85025; 85027; 96374; 96376; 98960; 99211; J2405; J2590; J2795; J3010; J7120; J7121

== ENCOUNTER → 2023-06-14 16:00 | Outpatient (BNVA) | payer MEDICAID, SELFPAY | PROVIDERS: PCP Family Medicine; Visit Provider Family Medicine | DX: D64.9 Anemia, unspecified (principal); Z71.6 Tobacco abuse counseling | CPT/HCPCS: 83540; 85025 ==

== ENCOUNTER → 2023-07-16 16:44 | Outpatient (BNVA) | payer MEDICAID, SELFPAY | PROVIDERS: PCP Family Medicine; Visit Provider Nurse Practitioner Family | DX: J06.9 Acute upper respiratory infection, unspecified (principal); Z30.013 Encounter for initial prescription of injectable contraceptive; Z30.42 Encounter for surveillance of injectable contraceptive | CPT/HCPCS: 87486; 87581; 87633 ==

== ENCOUNTER → 2023-10-22 11:01 | Outpatient (BNVA) | payer MEDICAID, SELFPAY | PROVIDERS: PCP Family Medicine; Visit Provider Nurse Practitioner Family | DX: Z32.01 Encounter for pregnancy test, result positive; F41.9 Anxiety disorder, unspecified; F32.A Depression, unspecified | CPT/HCPCS: 80053; 80061; 84443; 84702; 85025 ==

== ENCOUNTER 2023-11-02 09:19 | Emergency (ER) | payer MEDICAID, SELFPAY ==
[2023-11-02 09:24] VITALS: BP 134/83; PULSE 71; RESP 16; TEMP 36.5; O2SAT 100
--- NOTE | 2023-11-02 09:34 | US_ITS ---
WS: [id number] US transvaginal [id number] HISTORY: pelvic pain/bleeding/clots COMPARISON: None available. Uterus: 7.7 cm x 4.7 cm x 3.9 cm. Normal size anteverted uterus. No fibroid or mass. Endometrium: 0.3 cm. Normal. No mass or increased vascularity. Right ovary: 2.3 cm x 2.2 cm x 1.2 cm. Normal size and vascularity, no cystic or solid masses. Domina nt follicle 1.6 x 1.4 x 0.7 cm. Left ovary: 2.6 cm x 2.6 cm x 1.6 cm. Normal size and vascularity, no cystic or solid masses. No free fluid in the cul-de-sac. IMPRESSION: Normal transvaginal pelvic ultrasound. Normal endometrium.
--- NOTE | 2023-11-02 09:35 | ED_ITS ---
HPI - Female Genitourinary 2 General: Chief complaint: Vaginal Bleeding Stated complaint: vaginal bleeding Time Seen by Provider: 11/02/23 09:23 Source: patient Mode of arrival: ambulatory Limitations: no limitations History of Present Illness: Patient is a 23-year-old female here for complaints of heavy vaginal bleeding with clot passage. Patient states she has been on the Depo shot for approximately a year now. She states while on the shot she has rarely ever had any bleeding however over the past 4 days she states she has been bleeding very heavily with clots. She is also having quite a bit of pelvic discomfort and cramping. She states she was told to come to the emergency department for ultrasound imaging. She feels like cramping radiates up into her abdomen and also into her lower back and is complaining of intermittent paresthesias to her legs. She also states her and her significant other are fighting some gastritis secondary to contaminated water. Patient was seen by her primary care provider earlier this month as she was concerned for possible . She had a negative and serum quantitative blood work. Her last Depo shot was almost exactly a month ago. She has not noticed any discharg/odor. She is sexually active/monogamous with significant other with no concerns for sexually transmitted infections. MD elicited complaint: vaginal bleeding Onset (ago): day(s) Severity: severe Quality of pain: cramping Consistency: constant Vaginal discharge: none Vaginal bleeding: moderate and clots Exacerbating factors: none Relieving factors: none Associated symptoms: Reports abdominal pain and nausea; Deny headache(s) or syncope Treatment prior to arrival: none Sexual activity: Yes Patient : No Review of Systems 2 Const: Denies: fever(s), chills, body aches, fatigue or malaise Card: Denies: chest pain, palpitations, irregular heart rhythm, edema, swelling of feet/ankles, lightheadedness, syncope, pre-syncope, dyspnea on exertion, orthopnea, leg pain with exertion or acrocyanosis Resp: Denies: dyspnea, productive cough, wheezing, pain on inspiration, hemoptysis or chest congestion GI: Reports: abdominal pain, nausea and GI cramping; Denies: vomiting, diarrhea, change in bowel habits, hematochezia or melena : Denies: flank pain, difficulty voiding, dysuria, urinary frequency, urinary urgency or urinary hesitancy Musc: Reports: back pain; Denies: neck pain, extremity pain, extremity swelling, joint pain or joint swelling Skin/Breast: Denies: rash Neuro: Reports: sensory changes; Denies: headache(s), numbness in extremities or weakness in extremities PFSH ED 2 PFSH: Medical History Chronic anemia No pertinent past medical history neghx: htn,dm,thyroid,dvt/pe PCP: Josh Lowry Migraines NO AURA Chronic back pain Surgical History No pertinent past surgical history Family History Family/Other Breast cancer Maternal Aunt--dx age unknown Mother Hypertension Sister Hypertension Grandfather Hypertension Maternal Denies family history of Colon cancer Ovarian cancer Diabetes Heart disease Hypercholesteremia Uterine cancer Thyroid disease Stroke Social History Smoking and tobacco/nicotine status: never used tobacco/nicotine Alcohol intake: never Substance/Drug Use: never Marital status: Life Partner Number of children: 1 service: No Current occupational status: unemployed Current gender identity: Female Special brendon needs: No Agree to transfusion: Yes Physical Exam 2 Const: COMMON NORMALS: no acute distress, patient oriented x3, no limitations, alert and well nourished GENERAL APPEARANCE: cooperative NUTRITIONAL APPEARANCE: overweight ORIENTATION/CONSCIOUSNESS: Yes awake, Yes oriented to person, Yes oriented to place and Yes oriented to time Eye: COMMON NORMALS: no scleral icterus Resp: COMMON NORMALS: normal respiratory effort and clear to auscultation bilaterally AUSCULTATION: clear to auscultation bilaterally Cardio: COMMON NORMALS: regular rate and regular rhythm RATE: regular rate RHYTHM: regular rhythm GI: COMMON NORMALS: Normal to inspection, nondistended, normoactive bowel sounds present, Soft to palpation, No hepatosplenomegaly present and no masses INSPECTION: Yes normal to inspection AUSCULTATION: Yes normoactive bowel sounds PALPATION: Yes Soft to palpation, Yes Tenderness to palpation present (GI) (low pelvis-midline), No Guarding due to palpation present (GI), No Rigid due to palpation and Yes No hepatosplenomegaly present : COMMON NORMALS: Yes no CVA tenderness, Yes normal external appearance, Yes normal appearance of the vagina and Yes no masses BLADDER/KIDNEY EXAM: Yes no CVA tenderness SPECULUM EXAM - CERVIX: Yes Cervical os closed and Yes Other cervical findings present (erythema surrounding os concerning for possible neoplasm; no discharge) OTHER: Small amount of blood noted in vaginal canal. No active bleeding identified. Back/Pelvis: COMMON NORMALS: no CVA tenderness, thoracic and lumbar spine normal to inspection, no thoracic nor lumbar tenderness, thoraco-lumbar ROM normal and straight leg raise negative bilaterally LUMBAR SPINE/LOWER BACK: Y es paraspinal muscle tenderness SACROILIAC JOINTS: Yes SI joints normal S ACRUM: no tenderness COCCYX: no tenderness Extremity: GENERAL: Yes normal exam except as noted Neuro: NUBIA COMA SCALE: document GCS findings [place] coma scale eye opening: Spontaneous [place] coma scale verbal response: Orientated [place] coma scale motor response: Obey commands [place] coma scale total score: 15 COMMON NORMALS: patient oriented x3, moves all extremities, no focal motor deficits, no sensory deficits noted and gait normal SENSORIUM/ORIENTATION: Yes alert, Yes oriented to person, Yes oriented to place and Yes oriented to time Skin: COMMON NORMALS: no rashes or lesions noted GENERAL SKIN EXAM: no rashes or lesions noted Course 2 Vital Signs: Vital signs: Vital Signs Temperature 97.7 F 11/02/23 09:24 Pulse Rate 67 11/02/23 11:09 Respiratory Rate 16 11/02/23 11:09 Blood Pressure 121/77 11/02/23 11:09 Pulse Oximetry 100 11/02/23 11:09 Oxygen Delivery Me thod Room Air 11/02/23 11:09 MDM - Female Medical Decision Making Patient is a 23-year-old female here for bleeding while on the Depo shot as well as pelvic cramping. Vital signs are stable. Her H&H are normal. UA does not appear infected. Pelvic ultrasound is normal. On pelvic exam patient does have significant erythema surrounding her cervical os concerning for neoplasm. There was no cervical discharge. Patient has no concern for STDs. Her wet prep was normal. Gonorrhea/chlamydia collected and pending. Recommend she follow-up with her [employer] Dr. Lockhart for further evaluation/further testing. Medical Records I reviewed the patient's medical records. Lab Data I reviewed the patient's lab results. 11/02/23 09:45 11/02/23 09:45 Laboratory Results WBC 8.65 10^3/uL (3.29-11.43) 11/02/23 09:45 RBC 5.29 10^6/uL (3.85-5.65) 11/02/23 09:45 Hgb 12.60 g/dL (11.27-16.99) 11/02/23 09:45 Hct 40.0 % (36-47) 11/02/23 09:45 MCV 75.6 fl (85-98) L 11/02/23 09:45 MCH 23.8 pg (27-33) L 11/02/23 09:45 MCHC 31.5 g/dL (30-55) 11/02/23 09:45 RDW 16.5 % (12.1-15.1) H 11/02/23 09:45 Plt Count 400 10^3/cmm (157-399) H 11/02/23 09:45 MPV 9.0 fL (7.4-10.4) 11/02/23 09:45 Neut % (Auto) 64.2 % 11/02/23 09:45 Lymph % (Auto) 24.7 % 11/02/23 09:45 [place] % (Auto) 5.2 % 11/02/23 09:45 Eos % (Auto) 5.1 % 11/02/23 09:45 Baso % (Auto) 0.6 % 11/02/23 09:45 Neut # (Auto) 5.55 10^3/uL (1.8-7.7) 11/02/23 09:45 Lymph # (Auto) 2.1 10^3/uL (0.8-4.8) 11/02/23 09:45 [place] # (Auto) 0.5 10^3/uL (0.2-0.9) 11/02/23 09:45 Eos # (Auto) 0.4 10^3/uL (0.0-0.8) 11/02/23 09:45 Baso # (Auto) 0.1 10^3/uL (0.0-0.1) 11/02/23 09:45 Nucleated RBC % (auto) 0 % 11/02/23 09:45 Nucleated RBCs # 0.0 /100WBC 11/02/23 09:45 Sodium 140 mmol/L (136-145) 11/02/23 09:45 Potassium 4.4 mmol/L (3.5-5.1) 11/02/23 09:45 Chloride 106 mmol/L (98-107) 11/02/23 09:45 Carbon Dioxide 21 mmol/L (22-29) L 11/02/23 09:45 Anion Gap 17.4 (5-19) 11/02/23 09:45 BUN 11 mg/dL (6-20) 11/02/23 09:45 Creatinine 0.6 mg/dL (0.5-0.9) 11/02/23 09:45 GFR Calculation 125.0 mL/min (90-130) 11/02/23 09:45 Glucose 98 mg/dL (65-115) 11/02/23 09:45 Calculated Osmolality 289 mOsm/kg (285-295) 11/02/23 09:45 Calcium 9.3 mg/dL (8.5-10.5) 11/02/23 09:45 Total Bilirubin 0.2 mg/dL (0.15-1.2) 11/02/23 09:45 AST 19 U/L (0-32) 11/02/23 09:45 ALT 19 U/L (0-33) 11/02/23 09:45 Alkaline Phosphatase 85 U/L (35-105) 11/02/23 09:45 Total Protein 8.3 g/dL (6.6-8.7) 11/02/23 09:45 Albumin 4.5 g/dL (3.5-5.2) 11/02/23 09:45 Globulin 3.8 g/dL (1.3-4.6) 11/02/23 09:45 HCG, Qual Negative (Negative) 11/02/23 09:45 Urine Color Light yellow (Yellow) 11/02/23 10:06 Urine Appearance Hazy (CLEAR) A 11/02/23 10:06 Urine pH 8 (5-7) H 11/02/23 10:06 Ur Specific [place] 1.010 (1.005-1.030) 11/02/23 10:06 Urine Protein 1+ (Negative) H 11/02/23 10:06 Urine Glucose (UA) Norm (Normal) 11/02/23 10:06 Urine Ketones Negative (Negative) 11/02/23 10:06 Urine Blood 3+ (Negative) H 11/02/23 10:06 Urine Nitrate Negative (Negative) 11/02/23 10:06 Urine Bilirubin Neg (Negative) 11/02/23 10:06 Urine Urobilinogen Norm mg/dL (Negative) 11/02/23 10:06 Ur Leukocyte Esterase Trace (Negative) H 11/02/23 10:06 Urine RBC 15-25 /hpf (0-2) H 11/02/23 10:06 Urine WBC Rare /hpf (0-5) 11/02/23 10:06 Ur Squamous Epith Cells 0-4 /hpf (0-5) H 11/02/23 10:06 Amorphous Sediment Not Reportable 11/02/23 10:06 Urine Bacteria Trace /hpf (NONE) 11/02/23 10:06 All radiology interpretation(s) finalized by discharge Discharge Plan Discharge Patient Disposition: Home Clinical Impression: Vaginal bleeding, Abnormal cervix finding Condition: Stable Prescriptions: No Action ferrous gluconate 324 mg (38 mg iron) tablet 324 mg PO BID Qty: 60 3RF sumatriptan succinate 100 mg tablet See Rx Instructions .ROUTE .COMPLEX Rx Instructions: TAKE ONE TABLET BY MOUTH AT ONSET of HEADACHE, if no RELIEF MAY REPEAT 1 TABLET AFTER AT least 2 hours. DO not exceed 2 TABLETS in 24 hours. Tylenol Ex Str Rapid Release 500 mg Tablet 1,000 mg PO Q6H PRN (Reason: Pain) Depo-Provera 150 mg/mL syringe 150 mg IM .EVERY 3 MONTHS Discharge Orders: Discharge ED (Routine); Ordered 11/02/23 Ordered By: Halley Olsen Referrals: Malia Laguerre MD [Primary Care Provider] - Activity Restrictions/Additional Instructions: As we discussed I would like you to follow-up with your [employer] Dr. Lockhart for further evaluation of your pelvic pain and abnormal cervical findings here. We will place a case management referral to try to get you a follow-up appointment with her. Coding Level of Care Code ED Community Assistant for Darline Barlow
[2023-11-02 09:53] LABS: Basophils # 0.1 10^3/uL (0.0-0.1); Basophils % 0.6 %; Eosinophils # 0.4 10^3/uL (0.0-0.8); Eosinophils % 5.1 %; Lymphocytes # 2.1 10^3/uL (0.8-4.8); Lymphocytes % 24.7 %; Mean Corpuscular HGB Conc 31.5 g/dL (30-55); Mean Corpuscular Hemoglobin 23.8 pg (27-33); Mean Corpuscular Volume 75.6 fl (85-98); Monocytes # 0.5 10^3/uL (0.2-0.9); Monocytes % 5.2 %; Neutrophils # 5.55 10^3/uL (1.8-7.7); Neutrophils % 64.2 %; Nucleated Red Blood Cells % 0 %; Platelet Count 400 10^3/cmm (157-399); Red Blood Count 5.29 10^6/uL (3.85-5.65); Red Cell Distribution Width 16.5 % (12.1-15.1); White Blood Count 8.65 10^3/uL (3.29-11.43)
[2023-11-02 10:13] LABS: HCG, Serum Qual Negative (Negative)
[2023-11-02 10:15] LABS: Alanine Aminotransferase 19 U/L (0-33); Albumin Level 4.5 g/dL (3.5-5.2); Alkaline Phosphatase 85 U/L (35-105); Anion Gap 17.4 (5-19); Aspartate Amino Transferase 19 U/L (0-32); Blood Urea Nitrogen 11 mg/dL (6-20); Calcium 9.3 mg/dL (8.5-10.5); Carbon Dioxide 21 mmol/L (22-29); Chloride 106 mmol/L (98-107); Creatinine Clr Calc Pharmacy 184.8956; Globulin 3.8 g/dL (1.3-4.6); Glucose 98 mg/dL (65-115); Osmolality Calculated 289 mOsm/kg (285-295); Potassium 4.4 mmol/L (3.5-5.1); Sodium 140 mmol/L (136-145); Total Bilirubin 0.2 mg/dL (0.15-1.2); Total Protein 8.3 g/dL (6.6-8.7)
[2023-11-02] MEDS: ketorolac 60 mg/2 mL INJ 30 MG IVP (10:18)
[2023-11-02] MEDS: ondansetron 2 mg/ML SDV 2 mL 4 MG IVP (10:18)
[2023-11-02 10:35] LABS: Bilirubin Urine Neg (Negative); Blood Urine 3+ (Negative); Glucose Urine UA Norm (Normal); Ketones Urine Negative (Negative); Nitrate Urine Negative (Negative); Protein Urine 1+ (Negative); Urine Appearance Hazy (CLEAR); Urine Color Light yellow (Yellow); pH Urine 8 (5-7)
[2023-11-02 10:36] LABS: Add Urine Microscopic? YES; Leukocyte Esterase Urine Trace (Negative); Urobilinogen Urine Norm (Negative)
[2023-11-02 10:38] LABS: Add Urine Culture? Yes; Bacteria Urine TRACE /hpf; RBC Urine 15-25 /hpf (0-2); Squamous Epithelial Cell Urine 0-4 /hpf (0-5); WBC Urine RARE /hpf (0-5)
[2023-11-02 11:09] VITALS: BP 121/77; PULSE 67; RESP 16; O2SAT 100
--- NOTE | 2023-11-02 15:39 | DCPLANNER ---
A message was sent to OB on 11/02/23 at 1124.[facility] to contact patient
[2023-11-03 11:40] LABS: Chlamydia Trachomatis RNA TMA NOT DETECTED (NOT DETECTED); Neisseria Gonorrhoeae RNA, TMA NOT DETECTED (NOT DETECTED)
== END 2023-11-02 11:14 | disposition home or self-care (01) ==
PROVIDERS: Emergency Provider Physician Assistant; PCP Family Medicine
DX: N93.9 Abnormal uterine and vaginal bleeding, unspecified (principal); N88.9 Noninflammatory disorder of cervix uteri, unspecified
CPT/HCPCS: 36415; 76830; 80053; 81001; 84703; 85025; 87086; 87210; 87491; 87591; 96374; 96375; 99284; J1885; J2405

== ENCOUNTER → 2024-04-29 16:19 | Outpatient (BNVA) | payer SELFPAY | PROVIDERS: PCP Family Medicine; Visit Provider Nurse Practitioner Family | DX: E55.9 Vitamin D deficiency, unspecified (principal); D50.9 Iron deficiency anemia, unspecified; F41.9 Anxiety disorder, unspecified; F32.A Depression, unspecified | CPT/HCPCS: 80053; 81025; 82306; 82607; 83550; 83735; 84443; 85025 ==

== ENCOUNTER 2024-09-03 11:19 | Emergency (ER) | payer MEDICAID, SELFPAY ==
[2024-09-03 11:20] VITALS: BP 120/62; PULSE 75; RESP 16; TEMP 36.8; O2SAT 99; BMI 34.0
[2024-09-03 11:41] LABS: Bilirubin Urine Negative (Negative); Blood Urine Negative (Negative); Glucose Urine UA Negative (Normal); Ketones Urine 1+ (Negative); Leukocyte Esterase Urine 1+ (Negative); Nitrate Urine Negative (Negative); Protein Urine Trace (Negative); Specific Gravity, Urine 1.026 (1.005-1.030); Urine Appearance Cloudy (CLEAR); Urine Color Yellow (Yellow)
[2024-09-03 11:44] LABS: Add Urine Microscopic? YES; Bacteria Urine 1+ /hpf; Hyaline Casts Urine 2.46 /lpf
[2024-09-03 11:53] LABS: Add Urine Culture? No
[2024-09-03 11:59] LABS: Basophils # 0.1 10^3/uL (0.0-0.1); Basophils % 0.7 %; Eosinophils # 0.3 10^3/uL (0.0-0.8); Eosinophils % 3.9 %; Hematocrit 38.6 % (36-47); Lymphocytes # 1.8 10^3/uL (0.8-4.8); Lymphocytes % 25.8 %; Mean Corpuscular HGB Conc 31.9 g/dL (30-55); Mean Corpuscular Hemoglobin 26.3 pg (27-33); Mean Corpuscular Volume 82.5 fl (85-98); Mean Platelet Volume 9.4 fL (7.4-10.4); Monocytes # 0.4 10^3/uL (0.2-0.9); Monocytes % 6.4 %; Neutrophils # 4.32 10^3/uL (1.8-7.7); Neutrophils % 62.9 %; Nucleated Red Blood Cells % 0 %; Platelet Count 375 10^3/cmm (157-399); Red Blood Count 4.68 10^6/uL (3.85-5.65); White Blood Count 6.87 10^3/uL (3.29-11.43)
[2024-09-03 12:13] LABS: HCG, Serum Qual Negative (Negative)
[2024-09-03 12:17] LABS: Alanine Aminotransferase 19 U/L (0-33); Albumin Level 4.4 g/dL (3.5-5.2); Alkaline Phosphatase 91 U/L (35-105); Anion Gap 17.1 (5-19); Aspartate Amino Transferase 19 U/L (0-32); Blood Urea Nitrogen 9 mg/dL (6-20); Calcium 9.5 mg/dL (8.5-10.5); Carbon Dioxide 23 mmol/L (22-29); Chloride 101 mmol/L (98-107); Creatinine Clr Calc Pharmacy 187.5056; Globulin 3.3 g/dL (1.3-4.6); Glomerular Filtration Rate 123.9 mL/min (90-130); Glucose 94 mg/dL (65-115); Lipase 17 U/L (13-60); Osmolality Calculated 282 mOsm/kg (285-295); Potassium 4.1 mmol/L (3.5-5.1); Sodium 137 mmol/L (136-145); Total Bilirubin 0.4 mg/dL (0.15-1.2); Total Protein 7.7 g/dL (6.6-8.7)
--- NOTE | 2024-09-03 13:04 | CT_ITS ---
WS: [id number] CT ABDOMEN PELVIS TECHNIQUE: Contrast-enhanced CT of the abdomen and pelvis with coronal and sagittal reformatted image s. CLINICAL INFORMATION: severe lower abd pain, mucus in stool COMPARISON: None. DLP: 860.[address] scans at [facility] use at least one of these dose optimization techniques: automated e xposure control; mA and/or kV adjustment per patient size (includes targeted exams where dose is matc hed to clinical indication); or iterative reconstruction. FINDINGS: Lung bases are well aerated. Hepatic steatosis. Normal gallbladder. Normal portal vein and splenic ve in. Normal GE junction. Normal duodenal C-loop. Small bowel is normal in appearance. Normal spleen. Adrenal glands are normal. Normal pancreatic parenchymal enhancement. Normal celiac an d SMA. Normal caliber abdominal aorta. Small LEFT renal cyst. No hydronephrosis in either kidney. Nor mal renal parenchymal enhancement. Lobulated bladder is decompressed. Normal sigmoid colon. Sigmoid colon is decompressed. No evidence o f small or large bowel obstruction. Appendix is not visualized but no evidence of acute appendicitis. Anteverted uterus. Mild endometrial thickening with physiologic uterine enhancement. Small peripheral enhancing RIGHT corpus luteum cyst measuring 1.5 cm. No significant free fluid in the abdomen or pel vis. Mild disc bulging L4-L5 and L5-S1. No other remarkable findings. CT/CT abdomen pelvis w con* [id number] IMPRESSION: 1. Hepatic steatosis with mild hepatomegaly. 2. No evidence of small or large bowel obstruction. Normal sigmoid colon. 3. Normal renal parenchymal enhancement. No hydronephrosis. 4. Anteverted uterus with mild endometrial thickening and physiologic uterine enhancement. 5. Small RIGHT peripheral enhancing corpus luteum cyst measuring 1.5 cm. No fr ee fluid. 6. Appendix is not visualized but no evidence of acute appendicitis.
--- NOTE | 2024-09-03 13:13 | ED_ITS ---
HPI - Abdominal Pain 2 General: Chief Complaint: Abdominal Pain Stated Complaint: abd pain Time Seen by Provider: 09/03/24 12:54 Source: patient Mode of arrival: ambulatory Limitations: no limitations History of Present Illness: Patient is a 24-year-old female with no pertinent past medical history who reports to the emergency department complaining of lower abdominal pain for the past 2 days. She states he is concerned because her recently had significant GI infection, he had mucus in the stool at that time patient has noticed mucus in her stool as well. She has been alternating constipation and diarrhea, notes that her pain is all across the lower abdomen. No urinary symptoms or vaginal bleeding/discharge. She is not running any fevers, she is feels nauseous but has not had any vomiting. No risk for STDs. She states she has taken milk of magnesia, but and this seemed to make the pain worse. Overall the pain has been constant, intermittently will get significantly worse and feels sharp. She is currently rating the pain a 7/10, though appears comfortable in bed with vitals being unremarkable. MD elicited complaint: abdominal pain Pertinent past history: none Onset (ago): day(s) Pain Consistency: constant Location: RLQ and LLQ Severity: moderate Quality: sharp Radiation: none Exacerbating factors: medication Associated Symptoms: Reports change in stool character, constipation, diarrhea and nausea; Denies bloating, chills, dysuria, fever(s), hematochezia and vomiting Related Data Home Medications Medication Instructions Recorded Confirmed acetaminophen 500 mg tablet 1,000 mg PO Q6H PRN Pain 11/02/23 09/03/24 sumatriptan succinate 100 mg tablet See Rx Instructions .Route .COMPLEX 11/02/23 09/03/24 Bacillus coagulans-inulin 1 1 cap PO DAILY 09/03/24 09/03/24 billion cell-250 mg capsule (Probiotic with Prebiotic) [id number] 333 mg-133 1 tab PO DAILY 09/03/24 09/03/24 mg-5 mg tablet ferrous sulfate 134 mg (27 mg 134 mg PO DAILY 09/03/24 09/03/24 iron) tablet magnesium hydroxide 400 mg/5 mL 15 ml PO DAILY PRN constipation 09/03/24 09/03/24 oral suspension (Milk of Magnesia) vitB2 1.7 mg-niacin 20 mg-B6 2 2 ml sublingual DAILY 09/03/24 09/03/24 mg-B12 1.2 mg/mL-dexpan sublingual liqd (B Complex) Previous Rx's Medication Instructions Recorded ondansetron HCl 4 mg tablet 4 mg PO Q8H #30 tabs 09/03/24 Allergies Allergy/AdvReac Type Severity Reaction Status Date / Time No Known Allergies Allergy Verified 02/07/24 14:24 Review of Systems 2 General: Reports: 10 or more systems reviewed and unremarkable except in HPI and below Const: Denies: fever(s), chills, change in appetite, change in weight or diaphoresis ENMT: Denies: throat pain or hoarseness Card: Denies: chest pain, palpitations or lightheadedness Resp: Denies: dyspnea, productive cough or wheezing GI: Reports: abdominal pain, nausea, diarrhea, constipation, change in stool character and mucus in stool; Denies: vomiting, bloating or hematochezia : Denies: flank pain, difficulty voiding, dysuria, urinary frequency, urinary urgency, vaginal bleeding or vaginal discharge Musc: Denies: neck pain or back pain Skin/Breast: Denies: rash or new lesions Neuro: Denies: headache(s) or dizziness PFSH ED 2 PFSH: Medical History Chronic anemia No pertinent past medical history neghx: htn,dm,thyroid,dvt/pe PCP: Josh Lowry Migraines NO AURA Chronic back pain Surgical History No pertinent past surgical history Family History Family/Other Breast cancer Maternal Aunt--dx age unknown Mother Hypertension Sister Hypertension Grandfather Hypertension Maternal Denies family history of Colon cancer Ovarian cancer Diabetes Heart disease Hypercholesteremia Uterine cancer Thyroid disease Stroke Social History Smoking and tobacco/nicotine status: never used tobacco/nicotine Alcohol intake: never Substance/Drug Use: never Marital status: Life Partner Number of children: 1 service: No Current occupational status: unemployed Current gender identity: Female Special brendon needs: No Agree to transfusion: Yes Physical Exam 2 Const: COMMON NORMALS: no acute distress, average body habitus, patient oriented x3, no limitations, healthy appearing, alert and well nourished G ENERAL APPEARANCE: cooperative and comfortable ORIENTATION/CONSCIOUSNESS: Yes awake HENMT: COMMON NORMALS: normocephalic, atraumatic, hearing grossly normal bilaterally, external ears normal, Normal external nose present, Normal nasal mucous membranes and turbinates present and moist oral mucous membranes HEAD & SCALP: normocephalic and atraumatic NOSE: Normal external nose present and Normal nasal mucous membranes and turbinates present EXTERNAL EAR: Yes external ears normal Eye: COMMON NORMALS: Equal, round and reactive pupils present, EOMs intact bilaterally, conjunctivae normal and normal visual kay by confrontation C ONJUNCTIVA: Yes conjunctivae normal PUPIL: Yes Equal, round and reactive pupils present Neck/C-Spine: COMMON NORMALS: full ROM, supple, no meningeal signs and no JVD Resp: COMMON NORMALS: normal respiratory effort, No retractions, No use of accessory muscles and clear to auscultation bilaterally AUSCULTATION: clear to auscultation bilaterally, no crackles, no rales, no rhonchi and no wheezes Cardio: COMMON NORMALS: no JVD, regular rate, regular rhythm, S1 normal heart sound present, S2 normal heart sound present, No gallops present (Cardio), No clicks present (Cardio), No murmurs present (Cardio), No rub (Cardio) and Peripheral pulses 2+ throughout RATE: regular rate RHYTHM: regular rhythm HEART SOUNDS: S1 normal heart sound present and S2 normal heart sound present PERIPHERAL PULSES: Peripheral pulses 2+ throughout GI: COMMON NORMALS: Normal to inspection, nondistended, normoactive bowel sounds present, Soft to palpation, No hepatosplenomegaly present and no masses AUSCULTATION: Yes normoactive bowel sounds PALPATION: Yes Soft to palpation, Yes Tenderness to palpation present (GI) Details: LLQ and RLQ, No Guarding due to palpation present (GI), No Rigid due to palpation and Yes No hepatosplenomegaly present RECTAL EXAM: deferred : COMMON NORMALS: Yes no CVA tenderness BLADDER/KIDNEY EXAM: Yes no CVA tenderness Back/Pelvis: COMMON NORMALS: no CVA tenderness Extremity: COMMON NORMALS: normal to inspection and full ROM Neuro: COMMON NORMALS: patient oriented x3, moves all extremities, no focal motor deficits and no sensory deficits noted SENSORIUM/ORIENTATION: Yes alert MENINGEAL SIGNS: Yes no meningeal signs Psych: COMMON NORMALS: mental status grossly normal, cooperative and speech normal SPEECH: Yes normal speech Skin: COMMON NORMALS: no rashes or lesions noted GENERAL SKIN EXAM: no rashes or lesions noted Course 2 Vital Signs: Vital signs: Vital Signs Temperature 98.3 F 09/03/24 11:20 Pulse Rate 73 09/03/24 13:47 Respiratory Rate 16 09/03/24 13:47 Blood Pressure 142/77 09/03/24 13:47 Pulse Oximetry 97 09/03/24 13:47 Oxygen Delivery Me thod Room Air 09/03/24 13:47 MDM - Abdominal Pain Medical Decision Making Patient had presented with a couple days of abdominal pain, physical exam showed some bilateral lower quadrant to light palpation, vitals have been stable. Lab work was all completely normal. Urinalysis was contaminated, patient not having any urinary symptoms. Will not treat for infection at this time but informed her to recheck at follow-up visit. I told her that this is likely viral, she is adamant that she wants a CT scan, ordered a CT showing a lot of chronic findings but nothing acute or surgical. Along with viral gastroenteritis etiology includes ruptured ovarian cyst or food poisoning. She notes quite a bit of improvement of her nausea after Zofran. Strict return precautions given, patient endorsing understanding and will return with any worsening. Lab Data 09/03/24 11:47 09/03/24 11:47 Labs/Radiology: Radiology Impressions Abdomen/Pelvis CT 09/03/24 13:04 IMPRESSION: 1. Hepatic steatosis with mild hepatomegaly. 2. No evidence of small or large bowel obstruction. Normal sigmoid colon. 3. Normal renal parenchymal enhancement. No hydronephrosis. 4. Anteverted uterus with mild endometrial thickening and physiologic uterine enhancement. 5. Small RIGHT peripheral enhancing corpus luteum cyst measuring 1.5 cm. No free fluid. 6. Appendix is not visualized but no evidence of acute appendicitis. Laboratory Results WBC 6.87 10^3/uL (3.29-11.43) 09/03/24 11:47 RBC 4.68 10^6/uL (3.85-5.65) 09/03/24 11:47 Hgb 12.30 g/dL (11.27-16.99) 09/03/24 11:47 Hct 38.6 % (36-47) 09/03/24 11:47 MCV 82.5 fl (85-98) L 09/03/24 11:47 MCH 26.3 pg (27-33) L 09/03/24 11:47 MCHC 31.9 g/dL (30-55) 09/03/24 11:47 RDW 14.0 % (12.1-15.1) 09/03/24 11:47 Plt Count 375 10^3/cmm (157-399) 09/03/24 11:47 MPV 9.4 fL (7.4-10.4) 09/03/24 11:47 Neut % (Auto) 62.9 % 09/03/24 11:47 Lymph % (Auto) 25.8 % 09/03/24 11:47 [place] % (Auto) 6.4 % 09/03/24 11:47 Eos % (Auto) 3.9 % 09/03/24 11:47 Baso % (Auto) 0.7 % 09/03/24 11:47 Neut # (Auto) 4.32 10^3/uL (1.8-7.7) 09/03/24 11:47 Lymph # (Auto) 1.8 10^3/uL (0.8-4.8) 09/03/24 11:47 [place] # (Auto) 0.4 10^3/uL (0.2-0.9) 09/03/24 11:47 Eos # (Auto) 0.3 10^3/uL (0.0-0.8) 09/03/24 11:47 Baso # (Auto) 0.1 10^3/uL (0.0-0.1) 09/03/24 11:47 Nucleated RBC % (auto) 0 % 09/03/24 11:47 Nucleated RBCs # 0.0 /100WBC 09/03/24 11:47 Sodium 137 mmol/L (136-145) 09/03/24 11:47 Potassium 4.1 mmol/L (3.5-5.1) 09/03/24 11:47 Chloride 101 mmol/L (98-107) 09/03/24 11:47 Carbon Dioxide 23 mmol/L (22-29) 09/03/24 11:47 Anion Gap 17.1 (5-19) 09/03/24 11:47 BUN 9 mg/dL (6-20) 09/03/24 11:47 Creatinine 0.6 mg/dL (0.5-0.9) 09/03/24 11:47 GFR Calculation 123.9 mL/min (90-130) 09/03/24 11:47 Glucose 94 mg/dL (65-115) 09/03/24 11:47 Calculated Osmolality 282 mOsm/kg (285-295) L 09/03/24 11:47 Calcium 9.5 mg/dL (8.5-10.5) 09/03/24 11:47 Total Bilirubin 0.4 mg/dL (0.15-1.2) 09/03/24 11:47 AST 19 U/L (0-32) 09/03/24 11:47 ALT 19 U/L (0-33) 09/03/24 11:47 Alkaline Phosphatase 91 U/L (35-105) 09/03/24 11:47 Total Protein 7.7 g/dL (6.6-8.7) 09/03/24 11:47 Albumin 4.4 g/dL (3.5-5.2) 09/03/24 11:47 Globulin 3.3 g/dL (1.3-4.6) 09/03/24 11:47 Lipase 17 U/L (13-60) 09/03/24 11:47 HCG, Qual Negative (Negative) 09/03/24 11:47 Urine Color Yellow (Yellow) 09/03/24 11:29 Urine Appearance Cloudy (CLEAR) A 09/03/24 11:29 Urine pH 6.0 (5-7) 09/03/24 11:29 Ur Specific [place] 1.026 (1.005-1.030) 09/03/24 11:29 Urine Protein Trace (Negative) A 09/03/24 11:29 Urine Glucose (UA) Negative (Normal) 09/03/24 11:29 Urine Ketones 1+ (Negative) H 09/03/24 11:29 Urine Blood Negative (Negative) 09/03/24 11:29 Urine Nitrate Negative (Negative) 09/03/24 11: Urine Bilirubin Negative (Negative) 09/03/24 11:29 Urine Urobilinogen 1.0 mg/dL (Negative) 09/03/24 11:29 Ur Leukocyte Esterase 1+ (Negative) A 09/03/24 11:29 Urine RBC 3-5 /hpf (0-2) 09/03/24 11:29 Urine WBC 11-20 /hpf (0-5) H 09/03/24 11:29 Ur Squamous Epith Cells 11-20 /hpf (0-5) H 09/03/24 11:29 Amorphous Sediment Not Reportable 09/03/24 11:29 Urine Bacteria 1+ /hpf (NONE) H 09/03/24 11:29 Hyaline Casts 2.46 /lpf 09/03/24 11:29 All radiology interpretation(s) finalized by discharge Discharge Plan Discharge Patient Disposition: Home Clinical Impression: Abdominal pain Qualifiers: Abdominal location: lower abdomen, unspecified Qualified Code(s): R10.30 - Lower abdominal pain, unspecified Condition: Stable Prescriptions: New ondansetron HCl 4 mg tablet 4 mg PO Q8H Qty: 30 0RF No Action sumatriptan succinate 100 mg tablet See Rx Instructions .ROUTE .COMPLEX Rx Instructions: TAKE ONE TABLET BY MOUTH AT ONSET of HEADACHE, if no RELIEF MAY REPEAT 1 TABLET AFTER AT least 2 hours. DO not exceed 2 TABLETS in 24 hours. acetaminophen [Tylenol Ex Str Rapid Release] 500 mg Tablet 1,000 mg PO Q6H PRN (Reason: Pain) magnesium hydroxide [Milk of Magnesia] 400 mg/5 mL Suspension 15 ml PO DAILY PRN (Reason: constipation ) ferrous sulfate 134 mg (27 mg iron) Tablet 134 mg PO DAILY [id number] 333-133-5 mg Tablet 1 tab PO DAILY Probiotic with Prebiotic 1 billion-250 cell-mg Capsule 1 cap PO DAILY B Complex 1.7-20-2-1.2 mg/mL Liquid 2 ml SUBLINGUAL DAILY Discharge Orders: Discharge ED (Routine); Ordered 09/03/24 Ordered By: Surya Henriquez Referrals: Malia Laguerre MD [Primary Care Provider] - Patient Instructions: Abdominal Pain (ED), Pain Management Activity Restrictions/Additional Instructions: Take Zofran for nausea. Drink plenty of fluids. Ibuprofen and Tylenol. Close follow-up with primary care as we discussed, return with any worsening for further evaluation. Coding Level of Care Code ED [employer] for [employer]
[2024-09-03] MEDS: iohexol 350 mg/mL 500 mL Btl (per mL) IV (13:22)
[2024-09-03] MEDS: ondansetron 2 mg/ML SDV 2 mL 4 MG IVP (13:43)
[2024-09-03 13:47] VITALS: BP 142/77; PULSE 73; RESP 16; O2SAT 97
[2024-09-03 14:09] LABS: C.Diff PCR (Lab) NEGATIVE (Negative)
[2024-09-03 14:47] VITALS: BP 142/77; PULSE 65; RESP 20; O2SAT 98
== END 2024-09-03 14:50 | disposition home or self-care (01) ==
PROVIDERS: Emergency Medicine; Emergency Provider Physician Assistant; PCP Family Medicine
DX: R10.30 Lower abdominal pain, unspecified (principal)
CPT/HCPCS: 36415; 74177; 80053; 81001; 83690; 84703; 85025; 87493; 96374; 99285; J2405

== ENCOUNTER → 2025-02-04 14:31 | Outpatient (BNVA) | payer OTHER, SELFPAY | PROVIDERS: PCP Nurse Practitioner Family; Visit Provider Nurse Practitioner Family | DX: R11.0 Nausea (principal) | CPT/HCPCS: 81025 ==